=== PATIENT | female | born 1995 | race Caucasian/White ===

== ENCOUNTER 2020-04-20 15:19 | Inpatient (IN) | payer OTHER, SELFPAY ==
[~2020-04-20] VITALS: Ht 157.5 cm; Wt 56.7 kg
[2020-04-20 15:32] VITALS: Ht 157.5 cm; Wt 56.7 kg
[2020-04-20 16:50] LABS: UA SPECIFIC GRAVITY 1.025 (1.005-1.035); microscopic required? YES; urine erythrocyte 3+ (NEGATIVE)
[2020-04-20 17:01] LABS: CALCIUM 8.3 mg/dL (8.5-10.1); CARBON DIOXIDE 25.1 mmol/L (21-32); CHLORIDE SERUM 103 mmol/L (98-107); CREATININE SERUM 0.5 mg/dL (0.6-1.0); GFR1 > 60 mL/min; GLUCOSE SERUM 100 mg/dL (74-106); POTASSIUM SERUM 3.6 mmol/L (3.5-5.1); SODIUM SERUM 136 mmol/L (136-145)
[2020-04-20 17:15] LABS: ALBUMIN 3.1 g/dL (3.4-5.0); ALKALINE PHOSPHATASE 45 U/L (46-116); ALT/SGPT 41 U/L (14-59); AST/SGOT 60 U/L (15-37); BILIRUBIN TOTAL 0.4 mg/dL (0.20-1.00); C REACTIVE PROTEIN 0.7 mg/dL (<=0.9); LACTIC DEHYDROGENASE (LDH) 421 U/L (100-190); TOTAL PROTEIN, SERUM 8.8 g/dL (6.4-8.2)
[2020-04-20 18:30] LABS: BASOPHIL % 0.4 % (0-2)
[2020-04-20 18:53] LABS: RED CELL DISTRIBUTION WIDTH 15.9 % (11.5-14.5)
[2020-04-20 18:57] LABS: PLATELET COUNT 2 x10^3mcL (130-400)
[2020-04-20 19:51] LABS: rbc morphology (normal/abnorm) ABNORMAL (NORMAL)
[2020-04-20 20:06] LABS: rbc morphology (normal/abnorm) ABNORMAL (NORMAL)
[2020-04-20 20:21] LABS: RED CELL DISTRIBUTION WIDTH 15.5 % (11.5-14.5)
[2020-04-20 20:23] LABS: PLATELET COUNT 2 x10^3mcL (130-400)
[2020-04-20 20:40] LABS: rbc morphology (normal/abnorm) ABNORMAL (NORMAL)
[2020-04-20 21:32] LABS: RED BLOOD CELLS 2.97 M/mm3 (4.10-5.10)
[2020-04-20 21:54] LABS: IRON 52 ug/dL (50-170); TOTAL IRON BINDING CAPACITY 317 ug/dL (250-450)
[2020-04-20 23:30] VITALS: BP 118/84
[2020-04-21 06:01] VITALS: BP 118/81
[2020-04-21 07:19] LABS: CALCIUM 8.4 mg/dL (8.5-10.1); CHLORIDE SERUM 106 mmol/L (98-107); CREATININE SERUM 0.4 mg/dL (0.6-1.0); GFR1 > 60 mL/min; GLUCOSE SERUM 102 mg/dL (74-106); MAGNESIUM 1.8 mg/dL (1.8-2.4); PHOSPHOROUS 4.5 mg/dL (2.5-4.9); SODIUM SERUM 138 mmol/L (136-145)
[2020-04-21 08:37] VITALS: BP 107/69
[2020-04-21 11:14] LABS: MONOCYTE 10 % (0-7); SEGMENTED NEUTROPHILS 65 % (37-75); rbc morphology (normal/abnorm) ABNORMAL (NORMAL)
[2020-04-21 11:31] LABS: PLATELET COUNT 2 x10^3mcL (130-400)
[2020-04-21 13:28] VITALS: BP 109/71
[2020-04-21 17:36] VITALS: BP 111/70
[2020-04-21 18:02] LABS: PLATELET COUNT 3 x10^3mcL (130-400)
[2020-04-21 18:30] LABS: BAND NEUTROPHIL 3 % (0-10); BASOPHIL 0 % (0-2); MONOCYTE 1 % (0-7); SEGMENTED NEUTROPHILS 80 % (37-75)
[2020-04-21 18:32] LABS: PLATELET MORPHOLOGY PLATELETS DECREASED; rbc morphology (normal/abnorm) ABNORMAL (NORMAL)
[2020-04-21 20:50] VITALS: BP 98/61
[2020-04-22] VITALS (8 sets, daily range): BP systolic 93–108; BP diastolic 58–68
[2020-04-22 07:03] LABS: BASOPHIL % 0.2 % (0-2)
[2020-04-22 07:11] LABS: CALCIUM 8.3 mg/dL (8.5-10.1); CHLORIDE SERUM 105 mmol/L (98-107); CREATININE SERUM 0.5 mg/dL (0.6-1.0); GFR1 > 60 mL/min; GLUCOSE SERUM 110 mg/dL (74-106); PHOSPHOROUS 3.6 mg/dL (2.5-4.9); POTASSIUM SERUM 4.2 mmol/L (3.5-5.1); SODIUM SERUM 137 mmol/L (136-145)
[2020-04-22 08:51] LABS: RED CELL DISTRIBUTION WIDTH 15.6 % (11.5-14.5)
[2020-04-22 08:52] LABS: PLATELET COUNT 3 x10^3mcL (130-400)
[2020-04-23 05:42] VITALS: BP 96/60
[2020-04-23 07:24] LABS: CALCIUM 8.2 mg/dL (8.5-10.1); CARBON DIOXIDE 23.9 mmol/L (21-32); CHLORIDE SERUM 104 mmol/L (98-107); CREATININE SERUM 0.4 mg/dL (0.6-1.0); GFR1 > 60 mL/min; GLUCOSE SERUM 99 mg/dL (74-106); PHOSPHOROUS 3.4 mg/dL (2.5-4.9); POTASSIUM SERUM 3.8 mmol/L (3.5-5.1); SODIUM SERUM 135 mmol/L (136-145)
[2020-04-23 08:25] LABS: BASOPHIL % 0.1 % (0-2)
[2020-04-23 08:27] LABS: RED CELL DISTRIBUTION WIDTH 16.5 % (11.5-14.5)
[2020-04-23 08:37] VITALS: BP 96/69
[2020-04-23 09:59] LABS: PLATELET COUNT 3 x10^3mcL (130-400)
[2020-04-23 12:24] VITALS: BP 105/69
[2020-04-23 17:04] VITALS: BP 99/59
[2020-04-23 19:15] VITALS: BP 103/63
[2020-04-24 06:38] VITALS: BP 97/59
[2020-04-24 07:13] LABS: BASOPHIL % 0.2 % (0-2)
[2020-04-24 07:39] LABS: CALCIUM 8.3 mg/dL (8.5-10.1); CARBON DIOXIDE 24.7 mmol/L (21-32); CHLORIDE SERUM 105 mmol/L (98-107); CREATININE SERUM 0.5 mg/dL (0.6-1.0); GFR1 > 60 mL/min; GLUCOSE SERUM 85 mg/dL (74-106); MAGNESIUM 2.1 mg/dL (1.8-2.4); PHOSPHOROUS 3.8 mg/dL (2.5-4.9); POTASSIUM SERUM 3.8 mmol/L (3.5-5.1); SODIUM SERUM 136 mmol/L (136-145)
[2020-04-24 09:03] VITALS: BP 96/56
[2020-04-24 09:53] LABS: RED CELL DISTRIBUTION WIDTH 16.3 % (11.5-14.5)
[2020-04-24 09:56] LABS: PLATELET COUNT 7 x10^3mcL (130-400)
[2020-04-24 14:00] VITALS: BP 104/68
[2020-04-24 17:35] VITALS: BP 100/65
[2020-04-24 19:10] VITALS: BP 101/64
[2020-04-25 06:00] VITALS: BP 97/62
[2020-04-25 06:50] LABS: BASOPHIL % 0.2 % (0-2)
[2020-04-25 07:56] LABS: RED CELL DISTRIBUTION WIDTH 15.9 % (11.5-14.5)
[2020-04-25 08:13] LABS: PLATELET COUNT 13 x10^3mcL (130-400)
[2020-04-25 08:32] VITALS: BP 94/58
[2020-04-25 09:21] LABS: CALCIUM 8.5 mg/dL (8.5-10.1); CREATININE SERUM 0.5 mg/dL (0.6-1.0); GFR1 > 60 mL/min; GLUCOSE SERUM 87 mg/dL (74-106); MAGNESIUM 2.1 mg/dL (1.8-2.4); PHOSPHOROUS 4.2 mg/dL (2.5-4.9)
[2020-04-25 09:58] LABS: CARBON DIOXIDE 19.6 mmol/L (21-32); CHLORIDE SERUM 106 mmol/L (98-107); POTASSIUM SERUM 4.1 mmol/L (3.5-5.1); SODIUM SERUM 139 mmol/L (136-145)
[2020-04-25 12:57] VITALS: BP 91/55
[2020-04-25 14:38] LABS: PLATELET COUNT 21 x10^3mcL (130-400); RED CELL DISTRIBUTION WIDTH 16.1 % (11.5-14.5)
[2020-04-25 14:50] LABS: BAND NEUTROPHIL 0 % (0-10); BASOPHIL 0 % (0-2); MONOCYTE 8 % (0-7); SEGMENTED NEUTROPHILS 49 % (37-75)
[2020-04-25 14:52] LABS: PLATELET MORPHOLOGY PLATELETS DECREASED; rbc morphology (normal/abnorm) NORMAL (NORMAL)
[2020-04-25 20:05] VITALS: BP 93/57
[2020-04-26 06:01] VITALS: BP 90/49
[2020-04-26 07:29] LABS: RED CELL DISTRIBUTION WIDTH 16.5 % (11.5-14.5)
[2020-04-26 07:35] LABS: CALCIUM 7.8 mg/dL (8.5-10.1); CHLORIDE SERUM 104 mmol/L (98-107); CREATININE SERUM 0.5 mg/dL (0.6-1.0); GFR1 > 60 mL/min; GLUCOSE SERUM 78 mg/dL (74-106); MAGNESIUM 1.8 mg/dL (1.8-2.4); PHOSPHOROUS 4.6 mg/dL (2.5-4.9); POTASSIUM SERUM 3.7 mmol/L (3.5-5.1); SODIUM SERUM 135 mmol/L (136-145)
[2020-04-26 07:55] LABS: PLATELET COUNT 19 x10^3mcL (130-400)
[2020-04-26 08:39] VITALS: BP 90/52
[2020-04-26 08:52] LABS: BAND NEUTROPHIL 5 % (0-10); MONOCYTE 12 % (0-7); SEGMENTED NEUTROPHILS 57 % (37-75); rbc morphology (normal/abnorm) ABNORMAL (NORMAL)
[2020-04-26 13:05] VITALS: BP 108/67
[2020-04-26 16:51] VITALS: BP 94/60
[2020-04-26 16:52] VITALS: BP 94/60
== END 2020-04-26 18:50 | disposition home or self-care (01) | DRG 178 ==
LOC: ED 15:19 → DU 20:52
PROVIDERS: Emergency Medicine; ADMIT Internal Medicine; ATTEND Internal Medicine
PROC: 30233R1 Transfusion of Nonautologous Platelets into Peripheral Vein, Percutaneous Approach (ICD-10-PCS; principal; 2020-04-21)
DX: U07.1 COVID-19 (principal); D69.3 Immune thrombocytopenic purpura; D61.818 Other pancytopenia; N39.0 Urinary tract infection, site not specified; M62.82 Rhabdomyolysis; E46 Unspecified protein-calorie malnutrition; D69.6 Thrombocytopenia, unspecified; R04.0 Epistaxis; M06.9 Rheumatoid arthritis, unspecified; E83.51 Hypocalcemia
CPT/HCPCS: 83880; 85378; 87804; G0378; J0696; J1561; J1720; J7030; J7040; J7050; J7060; J8540; P9035; Q0163; U0003